=== PATIENT | female | born 1935 | race African-American/Black ===

== ENCOUNTER 2017-01-26 04:21 | Inpatient (IN) | payer OTHER ==
[~2017-01-26] VITALS: Ht 170.2 cm; Wt 76.7 kg
[2017-01-26] MEDS ORDERED: METHYLPREDNISOLONE SOD SUCC 125 MG/2 ML VIAL IV STA (04:34)
[2017-01-26] MEDS ORDERED: IPRATROPIUM BROMIDE (0.02%) 0.5MG/2.5ML NEB HHN STA (04:34)
[2017-01-26] MEDS ORDERED: ALBUTEROL (0.083%) 2.5MG/3ML NEB HHN STA (04:34)
[2017-01-26] MEDS ORDERED: MAGNESIUM 2 G PREMIX 50 ML IV ONE (04:45)
[2017-01-26] MEDS ORDERED: ASPIRIN 81MG TABLET PO ONE (04:45)
[2017-01-26] MEDS ORDERED: NITROGLYCERIN OINT 1GM/INCH UDPKT TD ONE (04:45)
[2017-01-26] MEDS ORDERED: LEVOFLOXACIN 750MG PREMIX 150 ML IV ONE (04:45)
[2017-01-26 05:02] LABS: BG BASE EXCESS -0.9 mmol/L (-2.0-2.0); BG BILEVEL POS AIRWAY PRESSURE 15/5; BG FRACTION INSPIRED OXYGEN 100; BG HCO3 ACT 23.5 mmol/L (22.0-26.0); BG PCO2 37.8 mmHg (35.0-45.0); BG PH 7.411 (7.350-7.450); BG SAMPLE SITE LEFT BRACHIAL; BG TOTAL HEMOGLOBIN 10.9 g/dL (12.0-18.0); BG VENT MODE MASK - BIPAP; BG VENT RATE 18 set
[2017-01-26 05:03] LABS: BG CARBOXYHEMOGLOBIN 0.3 % (0.5-1.5); BG DEOXYHEMOGLOBIN 0.9 % (0.0-5.0); BG METHEMOGLOBIN 1.5 % (0.0-1.5); BG OXYGEN SATURATION 99.1 % (92.0-98.5); BG OXYHEMOGLOBIN 97.3 % (94.0-97.0)
[2017-01-26 05:10] LABS: BASOPHILS % 0.5 % (0.0-2.0); EOSINOPHILS % 1.9 % (0.0-5.0); HEMATOCRIT. 32.3 % (36.0-48.0); HEMOGLOBIN. 10.6 g/dL (12.0-16.0); LYMPHOCYTES % 26.4 % (20.0-50.0); MEAN CORPUSCULAR HEMOGLOBIN 26.9 pg (28.0-32.0); MEAN CORPUSCULAR VOLUME 82.2 fL (81.0-99.0); MEAN PLATELET VOLUME 10.4 fl (7.4-10.4); MONOCYTES % 7.3 % (2.0-8.0); NEUTROPHILS % 63.9 % (40.0-76.0); PLATELET 149 x1000/uL (130-400); RED BLOOD CELL COUNT 3.93 mill/uL (4.2-5.4); RED CELL DISTRIBUTION WIDTH 16.6 % (11.6-14.6)
[2017-01-26 05:24] LABS: CARBON DIOXIDE 25 mEq/L (21-32); CHLORIDE 102 mEq/L (98-107); ETHANOL BLOOD < 10 mg/dL; TROPONIN I < 0.02 ng/mL (0.00-0.04)
[2017-01-26 05:26] LABS: INR 4.4
[2017-01-26 06:29] LABS: PROTHROMBIN TIME 47.5 sec (9.4-11.6)
[2017-01-26 06:35] LABS: INR 4.5
[2017-01-26 09:58] LABS: CLARITY URINE CLEAR (CLEAR); COLOR URINE YELLOW (YELLOW); GLUCOSE URINE NEGATIVE (NEGATIVE); KETONES URINE NEGATIVE (NEGATIVE); LEUKOCYTE ESTERASE URINE NEGATIVE (NEGATIVE); NITRITE URINE NEGATIVE (NEGATIVE); OCCULT BLOOD URINE NEGATIVE (NEGATIVE); PROTEIN URINE 2+ (NEGATIVE); SPECIFIC GRAVITY URINE 1.022 (1.005-1.030); UROBILINOGEN URINE 0.2 E.U./dL (0.2-1.0)
[2017-01-26] MEDS ORDERED: ACETAMINOPHEN 650MG/20.3ML UDC GT PRN (10:15)
[2017-01-26] MEDS ORDERED: ENOXAPARIN 40MG/0.4ML SYR SUBCUT SCH (10:15)
[2017-01-26] MEDS ORDERED: IPRATROPIUM/ALBUTEROL 0.5-3(2.5)MG/3ML NEB INH PRN (10:15)
[2017-01-26] MEDS ORDERED: DOCUSATE SODIUM 100MG CAPSULE PO PRN (10:15)
[2017-01-26] MEDS ORDERED: DEXTROSE 50% WATER 50ML SYRINGE IV PRN (10:15)
[2017-01-26] MEDS ORDERED: ONDANSETRON HCL 4MG/2ML VIAL IV PRN (10:15)
[2017-01-26 10:29] LABS: *AMPHETAMINES SCREEN URINE NEGATIVE (NEGATIVE); *BARBITURATES SCREEN URINE NEGATIVE (NEGATIVE); *BENZODIAZEPINES SCREEN URINE NEGATIVE (NEGATIVE); *COCAINE SCREEN URINE NEGATIVE (NEGATIVE); CANNABINOID URINE SCREEN NEGATIVE (NEGATIVE); METHADONE URINE SCREEN NEGATIVE (NEGATIVE); OPIATES URINE SCREEN PRESUMTIVE POSITIVE (NEGATIVE); PHENCYCLIDINE URINE SCREEN NEGATIVE (NEGATIVE)
[2017-01-26] MEDS ORDERED: IPRATROPIUM/ALBUTEROL 0.5-3(2.5)MG/3ML NEB HHN PRN (11:15)
[2017-01-26] MEDS: INSULIN LISPRO 100 UNITS/ML SUBCUT SCH ×4 (11:24→21:10)
[2017-01-26 15:05] VITALS: BP 146/83
[2017-01-26] MEDS ORDERED: IPRATROPIUM/ALBUTEROL 0.5-3(2.5)MG/3ML NEB HHN SCH (16:00)
[2017-01-26] MEDS ORDERED: WARF5TAB73 PO (16:38)
[2017-01-26] MEDS ORDERED: METO50TA5 PO (16:38)
[2017-01-26] MEDS ORDERED: METF500T4 PO (16:39)
[2017-01-26] MEDS ORDERED: GLIP10TA10 PO (16:40)
[2017-01-26] MEDS ORDERED: LOSA25TA12 PO (16:40)
[2017-01-26] MEDS ORDERED: LINA5TAB PO (16:41)
[2017-01-26] MEDS ORDERED: PIOG15TA23 PO (16:42)
[2017-01-26] MEDS ORDERED: SIMV20TA6 PO (16:43)
[2017-01-26] MEDS ORDERED: HYDR25TA PO (16:45)
[2017-01-26] MEDS ORDERED: CHOL400C8 PO (16:45)
[2017-01-26 16:48] VITALS: BP 146/83
[2017-01-26] MEDS ORDERED: CEFU500T41 PO (16:48)
[2017-01-26] MEDS ORDERED: AZIT250T6 PO (16:48)
[2017-01-26] MEDS: BLOOD SUGAR DIAGNOSTIC STRIP TEST SCH ×3 (16:53→20:30)
[2017-01-26 20:00] VITALS: BP 149/80
[2017-01-27 00:05] VITALS: BP 145/70
[2017-01-27 04:00] VITALS: BP 155/84
[2017-01-27] MEDS: BLOOD SUGAR DIAGNOSTIC STRIP TEST SCH ×3 (06:39→17:16)
[2017-01-27] MEDS: INSULIN LISPRO 100 UNITS/ML SUBCUT SCH ×3 (06:50→18:06)
[2017-01-27] MEDS ORDERED: OMEPRAZOLE 20MG CAPSULE EXTENDED RELEASE PO SCH (07:10)
[2017-01-27 07:51] LABS: PROTHROMBIN TIME 44.4 sec (9.4-11.6)
[2017-01-27 08:01] LABS: BASOPHILS % 0.1 % (0.0-2.0); EOSINOPHILS % 0.1 % (0.0-5.0); HEMATOCRIT. 29.4 % (36.0-48.0); HEMOGLOBIN. 9.7 g/dL (12.0-16.0); LYMPHOCYTES % 11.7 % (20.0-50.0); MEAN CORPUSCULAR HEMOGLOBIN 26.5 pg (28.0-32.0); MEAN CORPUSCULAR VOLUME 80.6 fL (81.0-99.0); MEAN PLATELET VOLUME 10.6 fl (7.4-10.4); MONOCYTES % 8.5 % (2.0-8.0); NEUTROPHILS % 79.6 % (40.0-76.0); PLATELET 130 x1000/uL (130-400); RED BLOOD CELL COUNT 3.65 mill/uL (4.2-5.4); RED CELL DISTRIBUTION WIDTH 16.4 % (11.6-14.6)
[2017-01-27 08:24] LABS: INR 4.3
[2017-01-27 08:30] VITALS: BP 157/84
[2017-01-27] MEDS ORDERED: LEVOFLOXACIN 500MG PREMIX 100 ML IV SCH (09:00)
[2017-01-27 10:42] LABS: CHLORIDE 102 mEq/L (98-107)
[2017-01-27 10:58] LABS: CARBON DIOXIDE 24 mEq/L (21-32); HDL CHOLESTEROL 64 mg/dL (40-59); LDL CHOLESTEROL 64 mg/dL (5-100); PHOSPHORUS 3.4 mg/dL (2.5-4.9)
[2017-01-27] MEDS ORDERED: INSULIN DETEMIR UD 100 UNITS/ML SYR SUBCUT SCH ×2 (11:00→22:00)
[2017-01-27 17:44] VITALS: BP 148/73
== END 2017-01-27 19:45 | disposition short-term general hospital (02) | DRG 189 ==
LOC: ER 04:21 → 8WST 04:50 → SUPCPDRO 09:29 → EDBEDREQSVC 13:23 → ENRESERV 14:18
PROVIDERS: ADMIT Family Medicine Adult Medicine; ATTEND Family Medicine Adult Medicine
PROC: 5A09357 Assistance with Respiratory Ventilation, Less than 24 Consecutive Hours, Continuous Positive Airway Pressure (ICD-10-PCS; principal; 2017-01-26)
DX: J96.00 Acute respiratory failure, unspecified whether with hypoxia or hypercapnia (principal); J18.9 Pneumonia, unspecified organism; E87.2 Acidosis; I11.0 Hypertensive heart disease with heart failure; I48.91 Unspecified atrial fibrillation; D64.9 Anemia, unspecified; J44.0 Chronic obstructive pulmonary disease with (acute) lower respiratory infection; I50.9 Heart failure, unspecified; E11.9 Type 2 diabetes mellitus without complications; J44.1 Chronic obstructive pulmonary disease with (acute) exacerbation; R79.1 Abnormal coagulation profile; Z79.01 Long term (current) use of anticoagulants; Z86.73 Personal history of transient ischemic attack (TIA), and cerebral infarction without residual deficits; Z87.891 Personal history of nicotine dependence
CPT/HCPCS: 36415; 36600; 71010; 80048; 80053; 80061; 80305; 81001; 82375; 82805; 82962; 83605; 83690; 83735; 83880; 84100; 84484; 85025; 85610; 87040; 87086; 87804; 93005; 94660; 96361; 96365; 96366; 96375; 97162; 99285; G0482; J1815; J1956; J2930; J3475; J7050

== ENCOUNTER 2019-02-17 19:25 | Emergency (ER) | payer OTHER ==
[~2019-02-17] VITALS: Ht 167.6 cm; Wt 77.0 kg
[~2019-02-17 19:25] MED LIST: AZIT250T12 PO; CEFU500T41 PO; CHOL400C8 PO; GLIP10TA10 PO; HYDR25TA PO; LINA5TAB PO; LOSA25TA26 PO; METF-414 PO; METO-539 PO; PIOG15TA23 PO; SIMV20TA6 PO; WARF-53 PO
[2019-02-17] MEDS ORDERED: ACETAMINOPHEN 325MG TABLET PO STA (20:35)
[2019-02-17 20:53] LABS: BASOPHILS % 0.9 % (0.0-2.0); EOSINOPHILS % 2.6 % (0.0-5.0); HEMATOCRIT. 39.2 % (36.0-48.0); HEMOGLOBIN. 13.2 g/dL (12.0-16.0); LYMPHOCYTES % 25.8 % (20.0-50.0); MEAN CORPUSCULAR HEMOGLOBIN 31.7 pg (28.0-32.0); MEAN CORPUSCULAR VOLUME 93.9 fL (81.0-99.0); MEAN PLATELET VOLUME 7.2 fl (7.4-10.4); MONOCYTES % 10.1 % (2.0-8.0); NEUTROPHILS % 60.6 % (40.0-76.0); PLATELET 207 x1000/uL (130-400); RED BLOOD CELL COUNT 4.17 mill/uL (4.2-5.4); RED CELL DISTRIBUTION WIDTH 14.8 % (11.6-14.6)
[2019-02-17 20:57] LABS: CHLORIDE 111 mEq/L (98-107)
[2019-02-18 00:07] LABS: CLARITY URINE CLEAR (CLEAR); COLOR URINE YELLOW (YELLOW); KETONES URINE 1+ (NEGATIVE); LEUKOCYTE ESTERASE URINE 1+ (NEGATIVE); NITRITE URINE NEGATIVE (NEGATIVE); OCCULT BLOOD URINE NEGATIVE (NEGATIVE); PROTEIN URINE NEGATIVE (NEGATIVE); SPECIFIC GRAVITY URINE 1.035 (1.005-1.030); UROBILINOGEN URINE 0.2 E.U./dL (0.2-1.0)
[2019-02-18] MEDS ORDERED: LORAZEPAM 2MG/ML CPJ IM ONE ×2 (04:30→10:15)
[2019-02-18] MEDS ORDERED: DIPHENHYDRAMINE 25MG CAPSULE PO ONE (05:00)
[2019-02-18] MEDS ORDERED: LORAZEPAM 2MG/ML CPJ IV ONE (09:00)
[2019-02-18] MEDS ORDERED: CEFTRIAXONE 1 G PREMIX 50 ML IV ONE (09:00)
[2019-02-18] MEDS ORDERED: CEPHALEXIN 250MG CAPSULE PO ONE (10:15)
[2019-02-18 17:38] VITALS: BP 152/60
== END 2019-02-18 18:40 | disposition short-term general hospital (02) ==
LOC: ER 19:25
DX: T74.91XA Unspecified adult maltreatment, confirmed, initial encounter (principal); M54.2 Cervicalgia; F03.90 Unspecified dementia, unspecified severity, without behavioral disturbance, psychotic disturbance, mood disturbance, and anxiety; M54.9 Dorsalgia, unspecified; Z79.899 Other long term (current) drug therapy
CPT/HCPCS: 36415; 70450; 71045; 80053; 81003; 83880; 84484; 85025; 96372; 99284; J2060; Q0163